=== PATIENT | male | born 1995 | race Two or more races ===

== ENCOUNTER 2022-04-28 19:25 | Emergency (ER) | payer OTHER ==
[~2022-04-28] VITALS: Ht 185.4 cm; Wt 76.0 kg
[2022-04-28] MEDS ORDERED: PROMETHAZINE HCL 25 MG/ML 1ML IM ONE (21:45)
[2022-04-28] MEDS ORDERED: KETOROLAC TROMETH 30 MG/ML 1ML VIAL IM ONE (21:45)
[2022-04-28 22:18] VITALS: BP 141/88
[2022-04-28] MEDS ORDERED: AMOX875T3 PO (22:31)
== END 2022-04-28 22:22 | disposition home or self-care (01) ==
LOC: ER 19:25
DX: G43.909 Migraine, unspecified, not intractable, without status migrainosus (principal)
CPT/HCPCS: 96372; 99284; J1885; J2550